=== PATIENT | female | born 1985 | race Caucasian/White ===

== ENCOUNTER 2019-06-17 10:47 | Observation (INO) ==
--- NOTE | 2019-06-17 11:54 | Emergency Department Note ---
History of Present Illness General Chief Complaint: Shortness of Breath/Dyspnea Stated Complaint: SOB,PAIN IN CHEST,NECK,BACK,HTN,CSECTION 1WEEK AGO History of Present Illness Maximum Pain Intensity: 8 HPI Narrative: This patient is a 34-year-old female, 1 week , the presents to the emergency department complaining of chest pain and shortness of breath that started particularly last night. The chest pain is stabbing in nature. Her shortness of breath is worse with exertion. She denies any cough or hemoptysis. No fever. The patient notes that she did have left leg discomfort prior to discharge from her 1 week ago. An ultrasound was performed of her legs. No DVT was noted. She has not tried anything [id number] for her symptoms. The patient saw her [employer]ER today, and was sent here for further evaluation. Home Medications Home Medications Medication Instructions Recorded Confirmed Type PNV cmb#[id number]-ferrous fumarate-FA 1 tab PO QPM 05/27/19 06/17/19 History [] fluoxetine 40 mg PO PM 06/04/19 06/17/19 History ondansetron HCl [Zofran] 4 mg PO Q8H PRN 06/04/19 06/17/19 History ibuprofen 600 mg PO Q6H PRN #60 tab 06/10/19 06/17/19 Rx oxycodone-acetaminophen [Percocet] 1 tab PO Q4H PRN #18 tab 06/10/19 06/17/19 Rx omeprazole 20 mg PO DAILY PRN 06/17/19 06/17/19 History Allergies Allergy/AdvReac Type Severity Reaction Status Date / Time No Known Allergies Allergy Verified 06/17/19 20:29 Past Med/Surg History Medical History Anxiety GERD (gastroesophageal reflux disease) Controlled with Omeprazole Gestational diabetes Currently- monitors sugars- no issues per patient Scoliosis Surgical History Hx of section c/s (2011): 2/2 failure to progress- per records, good pain control with epidural but placement took multiple attempts/hx scoliosis c/s (2015): SAB x1 attempt at L3-L4 Hx of dilation and curettage PONV (postoperative nausea and vomiting) Social History Preferred Language: Moldovan Communication Ability: Effective Manager Recovery Required: No Beliefs That Will Affect Care: None marital status: Current Living Situation: Family Feels Safe at Home: Yes Smoking Status: Never smoker Second Hand Exposure: No ; Hx Alcohol Use: No Hx Substance Use: No Review of Systems A total of 10 systems reviewed and were otherwise negative Physical Exam Vital Signs: Vital Signs - 24 hr 06/17/19 10:51 06/17/19 11:43 06/17/19 11:44 Temperature 37.1 C Temperature Source Oral Pulse Rate 54 L 52 L Pulse Rate [Apical ] Pulse Rate from Sp O2 Sensor 53 L Respiratory Rate 20 23 Respiratory Effort / Characteristics Non-Labored Sponta neous Respiratory Depth Normal Respiratory Patter n Regular Blood Pressure 160/96 H 178/88 H Blood Pressure [Ri ght Arm] Blood Pressure Raven n 117 103 Blood Pressure Raven n [Right Arm] Pulse Oximetry 99 97 98 Oxygen Delivery Me thod Room Air Room Air Room Air Sepsis Recent Feve r Within 48 Hours No Sepsis New/Unexpla ined Change in Men gina Status No Sepsis Action Take n by Nursing No Action Required 06/17/19 13:00 06/17/19 14:01 06/17/19 14:30 Temperature Temperature Source Pulse Rate 52 L 56 L 61 Pulse Rate [Apical ] Pulse Rate from Sp O2 Sensor 51 L 55 L 59 L Respiratory Rate 21 15 20 Respiratory Effort / Characteristics Respiratory Depth Respiratory Patter n Blood Pressure 179/96 H 138/110 H 183/93 H Blood Pressure [Ri ght Arm] Blood Pressure Raven n 123 116 113 Blood Pressure Raven n [Right Arm] Pulse Oximetry 97 98 97 Oxygen Delivery Me thod Room Air Sepsis Recent Feve r Within 48 Hours Sepsis New/Unexpla ined Change in Men gina Status Sepsis Action Take n by Nursing 06/17/19 15:30 06/17/19 16:00 06/17/19 16:30 Temperature Temperature Source Pulse Rate 54 L 56 L 54 L Pulse Rate [Apical ] Pulse Rate from Sp O2 Sensor 54 L 56 L 54 L Respiratory Rate 21 28 H 27 H Respiratory Effort / Characteristics Respiratory Depth Respiratory Patter n Blood Pressure 170/95 H 159/89 H 161/92 H Blood Pressure [Ri ght Arm] Blood Pressure Raven n 122 105 117 Blood Pressure Raven n [Right Arm] Pulse Oximetry 98 96 96 Oxygen Delivery Me thod Room Air Room Air Sepsis Recent Feve r Within 48 Hours Sepsis New/Unexpla ined Change in Men gina Status Sepsis Action Take n by Nursing 06/17/19 17:00 06/17/19 17:48 Temperature Temperature Source Pulse Rate 52 L Pulse Rate [Apical ] 51 L Pulse Rate from Sp O2 Sensor 52 L Respiratory Rate 26 H 18 Respiratory Effort / Characteristics Non-Labored Respiratory Depth Normal Respiratory Patter n Blood Pressure 150/82 H Blood Pressure [Ri ght Arm] 163/87 H Blood Pressure Raven n 99 Blood Pressure Raven n [Right Arm] 112 Pulse Oximetry 96 99 Oxygen Delivery Me thod Room Air Room Air Sepsis Recent Feve r Within 48 Hours Sepsis New/Unexpla ined Change in Men gina Status Sepsis Action Take n by Nursing Constitutional: WD/WN, vitals as above Eyes: EOM intact bilaterally ENMT: external ear and nose normal, oropharynx normal Neck: trachea midline Respiratory: normal respiratory effort, lungs clear to auscultation Cardiovascular: RRR, no murmur, no edema Gastrointestinal (Abdomen): normal bowel sounds, soft, nontender, no hepatosplenomegaly Musculoskeletal: no cyanosis or clubbing, extremities motor strength 5/5 Skin: no rashes, warm and dry Neurologic: Alert and oriented x3. No focal motor deficits. Psychiatric: Acting appropriately Course Course Patient was seen and examined Vital signs including blood pressure were reviewed medications list was verified with patient Labs were obtained, and a saline lock was established And EKG was performed and reviewed. The patient was ordered a classroom monitor. engine monitor was placed Imaging was performed and reviewed. Upon reevaluation, the patient was complaining of a headache. She was ordered Tylenol. We discussed her results. She voiced understanding. The case was also discussed with my supervising physician and subsequently the [employer] service. The patient will be admitted for further treatment. Consultations Consultation #1: Dr. Graham Administered Medications Ioversol (Optiray 320 125ml) 120 ml IV ONCE PRN PRN Reason: Interaction Checking Stop: 06/21/19 13:26 Last Admin: 06/17/19 13:27 Dose: 120 ml Documented by: [id number] Discontinued Medications Acetaminophen (Tylenol) 1,000 mg PO NOW STA Stop: 06/17/19 14:29 Last Admin: 06/17/19 14:41 Dose: 1,000 mg Documented by: [id number] Diphenhydramine HCl (Benadryl) 25 mg IV NOW STA Stop: 06/17/19 18:45 Last Admin: 06/17/19 19:37 Dose: 25 mg Documented by: [id number] Famotidine (Pepcid 20mg Iv Push) 20 mg IV ONE STA Stop: 06/17/19 18:45 Last Admin: 06/17/19 19:37 Dose: 20 mg Documented by: [id number] Methylprednisolone (Solumedrol) 125 mg IV NOW STA Stop: 06/17/19 18:45 Last Admin: 06/17/19 19:37 Dose: 125 mg Documented by: [id number] Medical Decision Making Medical Records Attestation: I reviewed the patient's medical records. Home Medications Current Medication List: was personally reviewed by me Laboratory Data Attestation: I reviewed the patient's lab results. Result diagrams: 06/17/19 11:55 06/17/19 11:55 Lab Results 06/17/19 06/17/19 06/17/19 Range/Units 11:55 11:55 11:55 WBC 7.44 (4.8-10.8) K/uL RBC 3.89 L (4.2-5.4) M/uL Hgb 11.4 L (12.0-16.0) g/dL Hct 35.0 L (37-47) % MCV 90.0 (80-100) fL MCH 29.3 (25-34) pg MCHC 32.6 (32-36) g/dL RDW Std Deviation 47.5 H (36.4-46.3) fL RDW Coeff of Neeta 14.4 (11.5-14.5) % Plt Count 251 (130-400) K/uL MPV 10.3 (7.4-10.4) fL Immature Gran % (Auto) 0.5 % Neut % (Auto) 63.2 % Lymph % (Auto) 29.4 % [place] % (Auto) 5.6 % Eos % (Auto) 1.2 % Baso % (Auto) 0.1 % Immature Gran # (Auto) 0.04 H (0.00-0.02) K/uL Neut # (Auto) 4.69 (1.4-6.5) K/uL Lymph # (Auto) 2.19 (1.2-3.4) K/uL [place] # (Auto) 0.42 (0.11-0.59) K/uL Eos # (Auto) 0.09 (0-0.5) K/uL Baso # (Auto) 0.01 (0-0.2) K/uL PT 10.7 (9.0-12.0) Seconds INR 1.0 (0.9-1.1) Sodium 142 (136-145) mmol/L Potassium 4.0 (3.5-5.1) mmol/L Chloride 112 H (98-107) mmol/L Carbon Dioxide 22 (21-32) mmol/L Anion Gap 8.0 (3-11) BUN 11 (7-18) mg/dl Creatinine 0.71 (0.6-1.2) mg/dl Est Cr Clr Drug Dosing 126.4 ml/min Est GFR ( Amer) 128.8 Est GFR (Non-Af Amer) 111.1 BUN/Creatinine Ratio 15.7 (10-20) Glucose 81 (70-99) mg/dl Calcium 8.8 (8.5-10.1) mg/dl Total Bilirubin 0.4 (0.2-1) mg/dl Direct Bilirubin < 0.1 (0-0.2) mg/dl AST 39 H (15-37) U/L ALT 51 (12-78) U/L Alkaline Phosphatase 109 (45-117) U/L Troponin I < 0.015 (0-0.045) ng/ml Total Protein 6.9 (6.4-8.2) gm/dl Albumin 2.9 L (3.4-5.0) gm/dl Urine Color Urine Appearance (Clear) Urine pH (4.5-7.5) Ur Specific [place] (1.000-1.030) Urine Protein (Negative) Urine Glucose (UA) (Negative) Urine Ketones (Negative) Urine Blood (Negative) Urine Nitrite (Negative) Urine Bilirubin (Negative) Urine Urobilinogen (Negative) Ur Leukocyte Esterase (Negative) Urine WBC (Auto) (0-5) /hpf Urine RBC (Auto) (0-4) /hpf U Hyaline Cast (Auto) (0-5) /lpf U Epithel Cells (Auto) (0-5) /lpf Urine Bacteria (Auto) (Negative) 06/17/19 Range/Units 12:45 WBC (4.8-10.8) K/uL RBC (4.2-5.4) M/uL Hgb (12.0-16.0) g/dL Hct (37-47) % MCV (80-100) fL MCH (25-34) pg MCHC (32-36) g/dL RDW Std Deviation (36.4-46.3) fL RDW Coeff of Neeta (11.5-14.5) % Plt Count (130-400) K/uL MPV (7.4-10.4) fL Immature Gran % (Auto) % Neut % (Auto) % Lymph % (Auto) % Hays % (Auto) % Eos % (Auto) % Baso % (Auto) % Immature Gran # (Auto) (0.00-0.02) K/uL Neut # (Auto) (1.4-6.5) K/uL Lymph # (Auto) (1.2-3.4) K/uL Hays # (Auto) (0.11-0.59) K/uL Eos # (Auto) (0-0.5) K/uL Baso # (Auto) (0-0.2) K/uL PT (9.0-12.0) Seconds INR (0.9-1.1) Sodium (136-145) mmol/L Potassium (3.5-5.1) mmol/L Chloride (98-107) mmol/L Carbon Dioxide (21-32) mmol/L Anion Gap (3-11) BUN (7-18) mg/dl Creatinine (0.6-1.2) mg/dl Est Cr Clr Drug Dosing ml/min Est GFR ( Amer) Est GFR (Non-Af Amer) BUN/Creatinine Ratio (10-20) Glucose (70-99) mg/dl Calcium (8.5-10.1) mg/dl Total Bilirubin (0.2-1) mg/dl Direct Bilirubin (0-0.2) mg/dl AST (15-37) U/L ALT (12-78) U/L Alkaline Phosphatase (45-117) U/L Troponin I (0-0.045) ng/ml Total Protein (6.4-8.2) gm/dl Albumin (3.4-5.0) gm/dl Urine Color [place] Urine Appearance Cloudy A (Clear) Urine pH 6.0 (4.5-7.5) Ur Specific Nichols 1.018 (1.000-1.030) Urine Protein 1+ H (Negative) Urine Glucose (UA) Negative (Negative) Urine Ketones Trace H (Negative) Urine Blood 3+ H (Negative) Urine Nitrite Negative (Negative) Urine Bilirubin Negative (Negative) Urine Urobilinogen Negative (Negative) Ur Leukocyte Esterase 2+ H (Negative) Urine WBC (Auto) >30 H (0-5) /hpf Urine RBC (Auto) >30 H (0-4) /hpf U Hyaline Cast (Auto) 5-10 H (0-5) /lpf U Epithel Cells (Auto) >30 H (0-5) /lpf Urine Bacteria (Auto) Negative (Negative) Imaging Data Attestation: I personally reviewed and interpreted this imaging study as follows: Radiologist's Impression: CT chest for PE 1. No evidence of pulmonary thromboembolic disease. 2. Mild pulmonary edema with small pleural effusions. 3. Bibasilar groundglass densities suggest atelectasis. 4. Bronchial wall thickening is likely secondary to congestive change with bronchitis or reactive airway disease also differential considerations. ACT 112: Negative or not required by law. The above report was generated using voice recognition software. It may contain grammatical, syntax or spelling errors. Electronically signed by: Vinny Walton M.D. 06/17/2019 1:54 PM Dictated: [id number] Transcribed: 06/17/19 133 ECG Data Attestation: I personally reviewed and interpreted this ECG as follows: Prior ECG tracings: not available for review Interpretation: Sinus bradycardia with a rate of 54 bpm. Normal axis noted. No ectopy. No acute ischemic changes noted. MDM Narrative Differential diagnosis: Bronchitis, pneumonia, pulmonary embolus, atelectasis, cardiac arrhythmia, anemia, cardiac ischemia, preeclampsia, eclampsia among others This patient is a 34-year-old female who presents to the emergency department with complaints of chest pain and shortness of breath. Her past chart was reviewed. She was complaining of leg pain prior to being discharged after her 1 week ago. An ultrasound at that time was performed and did not show any signs of DVT. An order was placed for continuous cardiac monitoring. The monitor shows a rate of 54 with sinus bradycardic rhythm. On exam, she was not hypoxic. She was not tachycardic. Her blood pressure was however elevated. Given her state, there was concern for pulmonary embolus, which is likely the reason that she was sent over from her [employer] doctor's office today. An EKG was performed and unremarkable. Labs are also unremarkable. Troponin is negative. Due to risk factors as noted above, a CT scan was performed. This is consistent with pulmonary edema/congestion. No signs of pulmonary embolus. Due to her blood pressure, the case was discussed with SPICE ROOM WORKER. They recommended that the patient be admitted to the hospital for management of preeclampsia. Impression & Plan Pre-eclampsia, Chest pain, Acute dyspnea Discharge Plan Visit Data *Final* Discharge Date/Time: 06/17/19 19:34 Chief Complaint: Shortness of Breath/Dyspnea Stated Complaint: SOB,PAIN IN CHEST,NECK,BACK,HTN,CSECTION 1WEEK AGO ED Provider: Kedar Pedroza ED Midlevel Provider: Telma Ohara Discharge Problem: Pre-eclampsia, Chest pain, Acute dyspnea Patient Disposition: Admitted As Inpatient Condition: Fair Discharge Instructions Interventions: ED Discharge Assessment Last Done: 06/17/19 19:34
[2019-06-17 12:16] LABS: Basophils # (auto) 0.01 K/uL (0-0.2); Basophils % (auto) 0.1 %; Eosinophils # (auto) 0.09 K/uL (0-0.5); Eosinophils % (auto) 1.2 %; Hemoglobin 11.4 g/dL (12.0-16.0); Immature Granulocytes # (auto) 0.04 K/uL (0.00-0.02); Immature Granulocytes % (auto) 0.5 %; Lymphocytes # (auto) 2.19 K/uL (1.2-3.4); Lymphocytes % (auto) 29.4 %; Mean Corpuscular Hemoglobin 29.3 pg (25-34); Mean Corpuscular Hgb Conc 32.6 g/dL (32-36); Mean Platelet Volume 10.3 fL (7.4-10.4); Monocytes # (auto) 0.42 K/uL (0.11-0.59); Monocytes % (auto) 5.6 %; Neutrophils # (auto) 4.69 K/uL (1.4-6.5); Neutrophils % (auto) 63.2 %; Platelet Count 251 K/uL (130-400); RDW Coefficient of Variation 14.4 % (11.5-14.5); RDW Standard Deviation 47.5 fL (36.4-46.3); Red Blood Count 3.89 M/uL (4.2-5.4); White Blood Count 7.44 K/uL (4.8-10.8)
[2019-06-17 12:26] LABS: Prothrombin Time 10.7 Seconds (9.0-12.0)
[2019-06-17 12:35] LABS: Carbon Dioxide 22 mmol/L (21-32); Chloride 112 mmol/L (98-107); Sodium 142 mmol/L (136-145)
[2019-06-17 12:36] LABS: Alanine Aminotransferase 51 U/L (12-78); Albumin Level 2.9 gm/dl (3.4-5.0); BUN Creatinine Ratio 15.7 (10-20); Blood Urea Nitrogen 11 mg/dl (7-18); Calcium 8.8 mg/dl (8.5-10.1); Creatinine Clr Calc Pharmacy 126.4 ml/min; Est GFR (African American) 128.8; Est GFR (Non-African American) 111.1; Glucose 81 mg/dl (70-99)
[2019-06-17 12:40] LABS: Alkaline Phosphatase 109 U/L (45-117); Aspartate Aminotransferase 39 U/L (15-37); Bilirubin Direct < 0.1 mg/dl (0-0.2); Bilirubin,Total 0.4 mg/dl (0.2-1); Total Protein 6.9 gm/dl (6.4-8.2); Troponin I < 0.015 ng/ml (0-0.045)
[2019-06-17 13:22] LABS: Appearance Urine Cloudy (Clear); Bacteria Urine Automated Negative (Negative); Bilirubin Urine Negative (Negative); Blood Urine 3+ (Negative); Color Urine Orange; Epithelial Cell Urine Auto >30 /lpf (0-5); Glucose Urine UA Negative (Negative); Ketones Urine Trace (Negative); Leukocyte Esterase Urine 2+ (Negative); Nitrite Urine Negative (Negative); Protein Urine 1+ (Negative); RBC Urine Automated >30 /hpf (0-4); Specific Gravity Urine 1.018 (1.000-1.030); Urobilinogen Urine Negative (Negative); WBC Urine Automated >30 /hpf (0-5)
[2019-06-17] MEDS ORDERED: OPTIRAY 320 125ml IV PRN (13:27)
--- NOTE | 2019-06-17 13:55 | CT Scan Report ---
CT angio chest PE protocol CT DOSE: 520.46 mGy.cm HISTORY: 34 years-old Female with SOB. Acute shortness of breath TECHNIQUE: Multiple CTA images of the chest were obtained after the intravenous administration of 120 ml Optiray 320. Coronal and sagittal MIPS were obtained from the axial data set and were submitted for review. All measurements were obtained according to NASCET criteria. A dose lowering technique w as utilized adhering to the principles of ALARA. COMPARISON: Duplex venous Doppler study of same day FINDINGS: CTA: The heart is upper limits of normal in size. No pericardial effusion. Suboptimal evaluation of the le ft heart structures and the left ventricular outflow tract secondary to contrast bolus timing. Aberra nt retroesophageal course of the right subclavian artery. Proximal great vessels appear patent. No th oracic aortic aneurysm or dissection identified. Pulmonary artery is opacified to the level of the caasrez bsegmental branches and demonstrates no filling defects to suggest pulmonary thromboembolic disease. CT CHEST: Unremarkable thyroid. No pathologically enlarged lymph nodes. Small bilateral pleural effusions. No p neumothorax. Moderate bronchial wall thickening. Intralobular septal thickening it is most pronounced at the level of the lung bases. Bibasilar predominant groundglass densities. There are no suspicious pulmonary nodules or masses identified. The central airways appear patent. No acute process of the imaged upper abdomen. There is suggestion of mild hepatic steatosis. Soft tis sues and breast parenchyma appear unremarkable. Bones appear intact. IMPRESSION: 1. No evidence of pulmonary thromboembolic disease. 2. Mild pulmonary edema with small pleural effusions. 3. Bibasilar groundglass densities suggest atelectasis. 4. Bronchial wall thickening is likely secondary to congestive change with bronchitis or reactive air way disease also differential considerations. ACT 112: Negative or not required by law. The above report was generated using voice recognition software. It may contain grammatical, syntax o r spelling errors. Electronically signed by: Vinny Walton M.D. 06/17/2019 1:54 PM
[2019-06-17] MEDS ORDERED: ACETAMINOPHEN 500 MG TAB PO STA (14:28)
--- NOTE | 2019-06-17 15:07 | Electrocardiogram Report ---
Test Reason : Blood Pressure : / mmHG Vent. Rate : 054 BPM Atrial Rate : 054 BPM P-R Int : 140 ms QRS Dur : 074 ms QT Int : 440 ms P-R-T Axes : -01 010 025 degrees QTc Int : 417 ms Sinus bradycardia Otherwise normal ECG No previous ECGs available Confirmed by Gordo Curry ([id number]) on 06/17/2019 3:07:30 PM Referred By: Confirmed By:Kareem Curry
[2019-06-17] MEDS ORDERED: methylPREDNISolone 125 MG/2 ML VIAL IV STA (18:44)
[2019-06-17] MEDS ORDERED: FAMOTIDINE 20MG/5ML IV PUSH IV STA (18:44)
[2019-06-17] MEDS ORDERED: DiphenhydrAMINE HCL 50 MG/ML VIAL IV STA (18:44)
[2019-06-17] MEDS ORDERED: FLUOXETINE HCL 20 MG CAP PO ONE (20:39)
[2019-06-17] MEDS: LABETALOL HCL 200 MG TAB PO SCH (21:14)
--- NOTE | 2019-06-17 23:59 | History and Physical Report ---
DATE OF ADMISSION: 06/17/2019 CHIEF COMPLAINT: Chest pain, headache, shortness of breath. HISTORY OF PRESENT ILLNESS: The patient is a 34-year-old 4, para 3. She had 1 spontaneous first trimester AB, 3 C-sections. Her last was on 06/10/2019, was a repeat . She was in the hospital for 4 days. She had an uneventful postoperative course. Her obstetrical history is as follows: In 2011, she had a female, 7 pounds 6 ounces at 41 weeks, 48-hour labor, pushed for 4 hours, had a mid pelvic arrest secondary to cephalopelvic disproportion . Second 2015, a girl, 8 pounds 1 ounce, repeat at 39 weeks, 2020, 8 pounds 12 ounce boy at 39 weeks, repeat . The patient did not have any blood pressure problems prior to admission, she had been on Prozac, had stopped it for the majority of her , but had restarted it a week or 2 prior to delivery secondary to anxiety. She was on 40 mg a day. She was seen in the ER for evaluation of shortness of breath and chest pain and headaches. PE exam for pulmonary embolus was negative and also lab work for toxemia was negative. Her only significant finding was an elevated blood pressure. She had pressures as high as 185/95. PAST MEDICAL HISTORY: Three children in good health. ALLERGIES: No known drug allergies. PAST SURGICAL HISTORY: Three C-sections, a D&C. MEDICAL HISTORY: She has been on Prozac for anxiety for a long time, stopped most of the but was restarted several weeks prior to the delivery. She has not had a dose today. SOCIAL HISTORY: No smoking. No excessive alcohol intake. 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 FAMILY HISTORY: Mom 60 in good health. Father 62 in good health. Two sisters, 1 brother in good health. REVIEW OF SYSTEMS: HEAD: No symptoms of frequent or severe headaches. EYES: No symptoms of blurred vision, double vision. EARS: No symptoms of frequent ear infection, difficulty hearing. NOSE: No symptoms of frequent nosebleeds, difficulty breathing through her nose. THROAT: No symptoms of frequent or severe sore throats, difficulty swallowing. RESPIRATORY SYSTEM: No history of asthma, chest pain, shortness of breath. PHYSICAL EXAMINATION: GENERAL: Well-developed, well-nourished 34-year-old white female, alert, oriented x3 and cooperative in no acute distress, appears stated age. EYES: Conjunctivae are pink. Sclerae white, no evidence of jaundice. EARS: Had normal light reflex bilaterally. NOSE: Had normal mucosa. Septum is midline. There were no polyps. THROAT: No erythema or evidence of infection. Teeth are in good state of repair. HEAD: Normocephalic, normal distribution of hair. NECK: Supple. Trachea midline. Thyroid is not enlarged. There is no adenopathy appreciated. Both carotids are of good intensity. CHEST: Clear to auscultation and percussion. No wheezes, rales or rhonchi appreciated. ABDOMEN: Soft and nontender. There was a well-healed Pfannenstiel scar. There was no CVA tenderness. MUSCULOSKELETAL: No calf tenderness. IMPRESSIONS OF THIS CASE: Long history of anxiety, elevated blood pressure, headaches. MTDD
[2019-06-18] MEDS ORDERED: ACETAMINOPHEN 500 MG TAB PO PRN (00:42)
[2019-06-18] MEDS ORDERED: cephALEXin 500 MG CAP PO SCH (08:00)
[2019-06-18] MEDS: LABETALOL HCL 200 MG TAB PO SCH (08:50)
[2019-06-18 08:51] LABS: Eosinophils # (auto) 0.01 K/uL (0-0.5); Eosinophils % (auto) 0.2 %; Hematocrit (blood only) 38.4 % (37-47); Hemoglobin 12.7 g/dL (12.0-16.0); Immature Granulocytes # (auto) 0.07 K/uL (0.00-0.02); Immature Granulocytes % (auto) 1.3 %; Lymphocytes # (auto) 0.91 K/uL (1.2-3.4); Lymphocytes % (auto) 17.2 %; Mean Corpuscular Hemoglobin 29.6 pg (25-34); Mean Corpuscular Hgb Conc 33.1 g/dL (32-36); Mean Corpuscular Volume 89.5 fL (80-100); Mean Platelet Volume 10.2 fL (7.4-10.4); Monocytes # (auto) 0.07 K/uL (0.11-0.59); Monocytes % (auto) 1.3 %; Neutrophils # (auto) 4.24 K/uL (1.4-6.5); Platelet Count 296 K/uL (130-400); RDW Coefficient of Variation 14.3 % (11.5-14.5); RDW Standard Deviation 46.6 fL (36.4-46.3); Red Blood Count 4.29 M/uL (4.2-5.4)
[2019-06-18 09:03] LABS: Albumin Level 3.1 gm/dl (3.4-5.0); BUN Creatinine Ratio 11.3 (10-20); Calcium 9.2 mg/dl (8.5-10.1); Est GFR (African American) 131.6; Est GFR (Non-African American) 113.6; Potassium 3.9 mmol/L (3.5-5.1)
[2019-06-18 09:05] LABS: Albumin Globulin Ratio 0.7 (0.9-2); Bilirubin,Total 0.4 mg/dl (0.2-1); Globulin 4.4 gm/dl (2.5-4.0); Total Protein 7.5 gm/dl (6.4-8.2)
[2019-06-18] MEDS ORDERED: ACETAMINOPHEN 325 MG TAB PO PRN (09:31)
--- NOTE | 2019-06-18 09:31 | Obstetrical Progress Note ---
Date of Service June 18, 2019 Assessment & Plan Admission and Anticipated Discharge Date Admission Date: June 17, 2019 Subjective Patient is seen and examined Reviewed her chart She presented to ER with CP/ SOB and LAM yesterday CT of chest was negative for PE Admitted for HT with LAM's and started on Labetalol 200 mg bid She feels better LAM is better but still there in her neck to top of her head 07/30, was 7 yesterday No change in vision/ N&V/ epigastric/ RUQ pain/ numbness/ ting;ing/ CP/SOB Bleeding is minimal No fever/ chills Eating normal diet Vital Signs Temp Pulse Resp BP Pulse Ox 06/18/19 09:31 72 96 06/18/19 09:29 66 133/66 06/18/19 09:26 79 94 06/18/19 09:18 68 94 06/18/19 09:13 68 95 06/18/19 09:08 72 95 06/18/19 09:03 66 95 06/18/19 08:58 67 95 06/18/19 08:56 64 148/71 H 06/18/19 08:55 71 162/77 H 06/18/19 08:53 75 96 06/18/19 08:48 70 95 06/18/19 08:43 66 95 06/18/19 08:38 67 96 06/18/19 08:33 68 95 06/18/19 08:28 77 96 06/18/19 08:23 78 96 06/18/19 08:20 75 90 06/18/19 08:18 70 92 06/18/19 08:13 75 91 06/18/19 08:08 71 92 06/18/19 08:03 73 91 06/18/19 07:58 73 91 06/18/19 07:55 72 157/75 H 06/18/19 07:53 70 92 06/18/19 07:48 74 94 06/18/19 07:46 83 89 L 06/18/19 07:43 73 94 06/18/19 07:38 70 93 06/18/19 07:33 68 93 06/18/19 07:28 68 94 06/18/19 07:23 68 93 06/18/19 07:18 68 93 06/18/19 07:13 67 94 06/18/19 07:08 66 93 06/18/19 07:05 37.1 C 77 16 137/76 06/18/19 07:03 71 93 06/18/19 06:58 67 94 06/18/19 06:55 67 155/75 H 06/18/19 06:53 70 94 06/18/19 06:48 66 93 06/18/19 06:43 68 94 06/18/19 06:38 69 95 06/18/19 06:33 66 94 06/18/19 06:28 65 95 06/18/19 06:23 61 95 06/18/19 06:18 62 97 06/18/19 06:13 62 96 06/18/19 06:08 64 96 06/18/19 06:03 64 97 06/18/19 05:58 71 95 06/18/19 05:55 66 136/76 06/18/19 05:51 64 97 06/18/19 05:46 65 96 06/18/19 05:41 67 95 06/18/19 05:36 63 96 06/18/19 05:31 61 95 06/18/19 05:26 71 96 06/18/19 05:21 65 94 06/18/19 05:16 64 96 06/18/19 05:11 63 94 06/18/19 05:06 65 96 06/18/19 05:01 64 95 06/18/19 04:56 64 97 06/18/19 04:55 61 147/72 H 06/18/19 04:51 64 96 06/18/19 04:46 60 96 06/18/19 04:43 36.9 C 18 06/18/19 04:41 65 98 06/18/19 04:36 74 97 06/18/19 04:29 63 96 06/18/19 04:24 69 96 06/18/19 04:19 64 96 06/18/19 04:14 65 96 06/18/19 04:09 64 96 06/18/19 04:04 63 96 06/18/19 03:59 62 97 06/18/19 03:55 65 161/81 H 06/18/19 03:54 67 96 06/18/19 03:49 63 95 06/18/19 03:44 63 94 06/18/19 03:39 63 94 06/18/19 03:34 65 94 0227/20 03:29 61 94 06/18/19 03:24 65 94 06/18/19 03:19 65 94 06/18/19 03:14 64 94 06/18/19 03:09 63 95 06/18/19 03:04 62 97 06/18/19 02:59 64 96 06/18/19 02:55 60 188/85 H 06/18/19 02:54 62 97 06/18/19 02:49 65 94 06/18/19 02:44 64 96 06/18/19 02:39 62 96 06/18/19 02:34 62 97 06/18/19 02:29 63 97 06/18/19 02:20 63 94 06/18/19 02:15 66 96 06/18/19 02:10 63 94 06/18/19 02:05 65 94 06/18/19 02:00 64 94 06/18/19 01:55 61 148/70 H 95 06/18/19 01:50 65 94 06/18/19 01:45 65 95 06/18/19 01:40 63 94 06/18/19 01:35 64 94 06/18/19 01:30 63 94 06/18/19 01:25 64 94 06/18/19 01:20 63 94 06/18/19 01:15 64 94 06/18/19 01:10 63 94 06/18/19 01:05 62 94 06/18/19 01:00 62 93 06/18/19 00:55 66 154/69 H 96 06/18/19 00:50 63 95 06/18/19 00:45 62 95 06/18/19 00:40 60 95 06/18/19 00:35 72 96 06/18/19 00:34 36.6 C 18 06/18/19 00:30 70 97 06/18/19 00:25 60 96 06/18/19 00:20 70 95 06/18/19 00:13 67 94 06/18/19 00:08 61 92 06/18/19 00:03 60 93 06/17/19 23:58 60 93 06/17/19 23:55 62 163/78 H 06/17/19 23:53 64 91 06/17/19 23:48 60 94 06/17/19 23:43 61 94 06/17/19 23:38 62 93 06/17/19 23:33 61 94 06/17/19 23:28 62 94 06/17/19 23:23 62 94 06/17/19 23:18 62 94 06/17/19 23:13 61 94 06/17/19 23:08 62 93 06/17/19 23:03 61 93 06/17/19 22:58 61 94 06/17/19 22:53 61 93 06/17/19 22:48 60 94 06/17/19 22:47 59 L 158/79 H 06/17/19 22:43 62 94 06/17/19 22:38 62 94 06/17/19 22:33 62 152/75 H 94 06/17/19 22:30 61 94 06/17/19 22:28 61 94 06/17/19 22:25 61 94 06/17/19 22:23 57 L 95 06/17/19 22:19 69 94 06/17/19 22:18 65 144/84 H 96 06/17/19 22:14 61 94 06/17/19 22:13 66 94 06/17/19 22:08 61 93 06/17/19 22:07 60 94 06/17/19 22:03 61 136/68 94 06/17/19 22:00 61 93 06/17/19 21:58 58 L 94 06/17/19 21:54 64 94 06/17/19 21:53 61 94 06/17/19 21:48 56 L 159/67 H 95 06/17/19 21:43 53 L 97 06/17/19 21:38 58 L 96 Lab Results 06/17/19 06/17/19 06/17/19 Range/Units 11:55 11:55 11:55 WBC 7.44 (4.8-10.8) K/uL RBC 3.89 L (4.2-5.4) M/uL Hgb 11.4 L (12.0-16.0) g/dL Hct 35.0 L (37-47) % MCV 90.0 (80-100) fL MCH 29.3 (25-34) pg MCHC 32.6 (32-36) g/dL RDW Std Deviation 47.5 H (36.4-46.3) fL RDW Coeff of Neeta 14.4 (11.5-14.5) % Plt Count 251 (130-400) K/uL MPV 10.3 (7.4-10.4) fL Immature Gran % (Auto) 0.5 % Neut % (Auto) 63.2 % Lymph % (Auto) 29.4 % Mills % (Auto) 5.6 % Eos % (Auto) 1.2 % Baso % (Auto) 0.1 % Immature Gran # (Auto) 0.04 H (0.00-0.02) K/uL Neut # (Auto) 4.69 (1.4-6.5) K/uL Lymph # (Auto) 2.19 (1.2-3.4) K/uL Mills # (Auto) 0.42 (0.11-0.59) K/uL Eos # (Auto) 0.09 (0-0.5) K/uL Baso # (Auto) 0.01 (0-0.2) K/uL PT 10.7 (9.0-12.0) Seconds INR 1.0 (0.9-1.1) Sodium 142 (136-145) mmol/L Potassium 4.0 (3.5-5.1) mmol/L Chloride 112 H (98-107) mmol/L Carbon Dioxide 22 (21-32) mmol/L Anion Gap 8.0 (3-11) BUN 11 (7-18) mg/dl Creatinine 0.71 (0.6-1.2) mg/dl Est Cr Clr Drug Dosing 126.4 ml/min Est GFR ( Amer) 128.8 Est GFR (Non-Af Amer) 111.1 BUN/Creatinine Ratio 15.7 (10-20) Glucose 81 (70-99) mg/dl Calcium 8.8 (8.5-10.1) mg/dl Total Bilirubin 0.4 (0.2-1) mg/dl Direct Bilirubin < 0.1 (0-0.2) mg/dl AST 39 H (15-37) U/L ALT 51 (12-78) U/L Alkaline Phosphatase 109 (45-117) U/L Lactate Dehydrogenase (84-246) U/L Troponin I < 0.015 (0-0.045) ng/ml Total Protein 6.9 (6.4-8.2) gm/dl Albumin 2.9 L (3.4-5.0) gm/dl Globulin (2.5-4.0) gm/dl Albumin/Globulin Ratio (0.9-2) Urine Color Urine Appearance (Clear) Urine pH (4.5-7.5) Ur Specific Hawley (1.000-1.030) Urine Protein (Negative) Urine Glucose (UA) (Negative) Urine Ketones (Negative) Urine Blood (Negative) Urine Nitrite (Negative) Urine Bilirubin (Negative) Urine Urobilinogen (Negative) Ur Leukocyte Esterase (Negative) Urine WBC (Auto) (0-5) /hpf Urine RBC (Auto) (0-4) /hpf U Hyaline Cast (Auto) (0-5) /lpf U Epithel Cells (Auto) (0-5) /lpf Urine Bacteria (Auto) (Negative) 06/17/19 06/18/19 06/18/19 Range/Units 12:45 08:21 08:21 WBC 5.30 (4.8-10.8) K/uL RBC 4.29 (4.2-5.4) M/uL Hgb 12.7 (12.0-16.0) g/dL Hct 38.4 (37-47) % MCV 89.5 (80-100) fL MCH 29.6 (25-34) pg MCHC 33.1 (32-36) g/dL RDW Std Deviation 46.6 H (36.4-46.3) fL RDW Coeff of Neeta 14.3 (11.5-14.5) % Plt Count 296 (130-400) K/uL MPV 10.2 (7.4-10.4) fL Immature Gran % (Auto) 1.3 % Neut % (Auto) 80.0 % Lymph % (Auto) 17.2 % Mills % (Auto) 1.3 % Eos % (Auto) 0.2 % Baso % (Auto) 0.0 % Immature Gran # (Auto) 0.07 H (0.00-0.02) K/uL Neut # (Auto) 4.24 (1.4-6.5) K/uL Lymph # (Auto) 0.91 L (1.2-3.4) K/uL Mills # (Auto) 0.07 L (0.11-0.59) K/uL Eos # (Auto) 0.01 (0-0.5) K/uL Baso # (Auto) 0.00 (0-0.2) K/uL PT (9.0-12.0) Seconds INR (0.9-1.1) Sodium 138 (136-145) mmol/L Potassium 3.9 (3.5-5.1) mmol/L Chloride 108 H (98-107) mmol/L Carbon Dioxide 23 (21-32) mmol/L Anion Gap 8.0 (3-11) BUN 8 (7-18) mg/dl Creatinine 0.69 (0.6-1.2) mg/dl Est Cr Clr Drug Dosing 130.0 ml/min Est GFR ( Amer) 131.6 Est GFR (Non-Af Amer) 113.6 BUN/Creatinine Ratio 11.3 (10-20) Glucose 133 H (70-99) mg/dl Calcium 9.2 (8.5-10.1) mg/dl Total Bilirubin 0.4 (0.2-1) mg/dl Direct Bilirubin (0-0.2) mg/dl AST 28 (15-37) U/L ALT 51 (12-78) U/L Alkaline Phosphatase 109 (45-117) U/L Lactate Dehydrogenase (84-246) U/L Troponin I (0-0.045) ng/ml Total Protein 7.5 (6.4-8.2) gm/dl Albumin 3.1 L (3.4-5.0) gm/dl Globulin 4.4 H (2.5-4.0) gm/dl Albumin/Globulin Ratio 0.7 L (0.9-2) Urine Color E[place] Urine Appearance Cloudy A (Clear) Urine pH 6.0 (4.5-7.5) Ur Specific Hawley 1.018 (1.000-1.030) Urine Protein 1+ H (Negative) Urine Glucose (UA) Negative (Negative) Urine Ketones Trace H (Negative) Urine Blood 3+ H (Negative) Urine Nitrite Negative (Negative) Urine Bilirubin Negative (Negative) Urine Urobilinogen Negative (Negative) Ur Leukocyte Esterase 2+ H (Negative) Urine WBC (Auto) >30 H (0-5) /hpf Urine RBC (Auto) >30 H (0-4) /hpf U Hyaline Cast (Auto) 5-10 H (0-5) /lpf U Epithel Cells (Auto) >30 H (0-5) /lpf Urine Bacteria (Auto) Negative (Negative) 06/18/19 Range/Units 08:21 WBC (4.8-10.8) K/uL RBC (4.2-5.4) M/uL Hgb (12.0-16.0) g/dL Hct (37-47) % MCV (80-100) fL MCH (25-34) pg MCHC (32-36) g/dL RDW Std Deviation (36.4-46.3) fL RDW Coeff of Neeta (11.5-14.5) % Plt Count (130-400) K/uL MPV (7.4-10.4) fL Immature Gran % (Auto) % Neut % (Auto) % Lymph % (Auto) % Mills % (Auto) % Eos % (Auto) % Baso % (Auto) % Immature Gran # (Auto) (0.00-0.02) K/uL Neut # (Auto) (1.4-6.5) K/uL Lymph # (Auto) (1.2-3.4) K/uL Mills # (Auto) (0.11-0.59) K/uL Eos # (Auto) (0-0.5) K/uL Baso # (Auto) (0-0.2) K/uL PT (9.0-12.0) Seconds INR (0.9-1.1) Sodium (136-145) mmol/L Potassium (3.5-5.1) mmol/L Chloride (98-107) mmol/L Carbon Dioxide (21-32) mmol/L Anion Gap (3-11) BUN (7-18) mg/dl Creatinine (0.6-1.2) mg/dl Est Cr Clr Drug Dosing ml/min Est GFR ( Amer) Est GFR (Non-Af Amer) BUN/Creatinine Ratio (10-20) Glucose (70-99) mg/dl Calcium (8.5-10.1) mg/dl Total Bilirubin (0.2-1) mg/dl Direct Bilirubin (0-0.2) mg/dl AST (15-37) U/L ALT (12-78) U/L Alkaline Phosphatase (45-117) U/L Lactate Dehydrogenase 386 H (84-246) U/L Troponin I (0-0.045) ng/ml Total Protein (6.4-8.2) gm/dl Albumin (3.4-5.0) gm/dl Globulin (2.5-4.0) gm/dl Albumin/Globulin Ratio (0.9-2) Urine Color Urine Appearance (Clear) Urine pH (4.5-7.5) Ur Specific Hawley (1.000-1.030) Urine Protein (Negative) Urine Glucose (UA) (Negative) Urine Ketones (Negative) Urine Blood (Negative) Urine Nitrite (Negative) Urine Bilirubin (Negative) Urine Urobilinogen (Negative) Ur Leukocyte Esterase (Negative) Urine WBC (Auto) (0-5) /hpf Urine RBC (Auto) (0-4) /hpf U Hyaline Cast (Auto) (0-5) /lpf U Epithel Cells (Auto) (0-5) /lpf Urine Bacteria (Auto) (Negative) PE: Alert, orientedx3, NAD, Ambulating in room Abd: soft, NT, no epig nor RUQ tenderness, incision healing well No VB Ext; trace edema, NT, Homans sign negative BL, DTR 3+/3+, no clonus AP: 34 yo s/p Repeat Csection, admitted for symptomatic HT in severe range, responded to PO Labetalol Clinically improving, still has mild LAM, BP is much better this morning Repeat labs normal creatinine, platelets, LFT's Plan to monitor longer and then reevaluate in the afternoon for possible d/c All questions were aswered Results & Data ([facility]) Vital Signs (Past 12 Hours) Vital Signs Temp Pulse Resp BP Pulse Ox 06/18/19 09:29 66 133/66 06/18/19 09:26 79 94 06/18/19 09:18 68 94 06/18/19 09:13 68 95 06/18/19 09:08 72 95 06/18/19 09:03 66 95 06/18/19 08:58 67 95 06/18/19 08:56 64 148/71 H 06/18/19 08:55 71 162/77 H 06/18/19 08:53 75 96 06/18/19 08:48 70 95 06/18/19 08:43 66 95 06/18/19 08:38 67 96 06/18/19 08:33 68 95 06/18/19 08:28 77 96 06/18/19 08:23 78 96 06/18/19 08:20 75 90 06/18/19 08:18 70 92 06/18/19 08:13 75 91 06/18/19 08:08 71 92 06/18/19 08:03 73 91 06/18/19 07:58 73 91 06/18/19 07:55 72 157/75 H 06/18/19 07:53 70 92 06/18/19 07:48 74 94 06/18/19 07:46 83 89 L 06/18/19 07:43 73 94 06/18/19 07:38 70 93 06/18/19 07:33 68 93 06/18/19 07:28 68 94 06/18/19 07:23 68 93 06/18/19 07:18 68 93 06/18/19 07:13 67 94 06/18/19 07:08 66 93 06/18/19 07:05 37.1 C 77 16 137/76 06/18/19 07:03 71 93 06/18/19 06:58 67 94 06/18/19 06:55 67 155/75 H 06/18/19 06:53 70 94 06/18/19 06:48 66 93 06/18/19 06:43 68 94 06/18/19 06:38 69 95 06/18/19 06:33 66 94 06/18/19 06:28 65 95 06/18/19 06:23 61 95 06/18/19 06:18 62 97 06/18/19 06:13 62 96 06/18/19 06:08 64 96 06/18/19 06:03 64 97 06/18/19 05:58 71 95 06/18/19 05:55 66 136/76 06/18/19 05:51 64 97 06/18/19 05:46 65 96 06/18/19 05:41 67 95 06/18/19 05:36 63 96 06/18/19 05:31 61 95 06/18/19 05:26 71 96 06/18/19 05:21 65 94 06/18/19 05:16 64 96 06/18/19 05:11 63 94 02/27/20 05:06 65 96 06/18/19 05:01 64 95 06/18/19 04:56 64 97 06/18/19 04:55 61 147/72 H 06/18/19 04:51 64 96 06/18/19 04:46 60 96 06/18/19 04:43 36.9 C 18 06/18/19 04:41 65 98 06/18/19 04:36 74 97 06/18/19 04:29 63 96 06/18/19 04:24 69 96 06/18/19 04:19 64 96 06/18/19 04:14 65 96 06/18/19 04:09 64 96 06/18/19 04:04 63 96 06/18/19 03:59 62 97 06/18/19 03:55 65 161/81 H 06/18/19 03:54 67 96 06/18/19 03:49 63 95 06/18/19 03:44 63 94 06/18/19 03:39 63 94 06/18/19 03:34 65 94 06/18/19 03:29 61 94 06/18/19 03:24 65 94 06/18/19 03:19 65 94 06/18/19 03:14 64 94 06/18/19 03:09 63 95 06/18/19 03:04 62 97 06/18/19 02:59 64 96 06/18/19 02:55 60 188/85 H 06/18/19 02:54 62 97 06/18/19 02:49 65 94 06/18/19 02:44 64 96 06/18/19 02:39 62 96 06/18/19 02:34 62 97 06/18/19 02:29 63 97 06/18/19 02:20 63 94 06/18/19 02:15 66 96 06/18/19 02:10 63 94 06/18/19 02:05 65 94 06/18/19 02:00 64 94 06/18/19 01:55 61 148/70 H 95 06/18/19 01:50 65 94 06/18/19 01:45 65 95 06/18/19 01:40 63 94 06/18/19 01:35 64 94 06/18/19 01:30 63 94 06/18/19 01:25 64 94 06/18/19 01:20 63 94 06/18/19 01:15 64 94 06/18/19 01:10 63 94 06/18/19 01:05 62 94 06/18/19 01:00 62 93 06/18/19 00:55 66 154/69 H 96 06/18/19 00:50 63 95 06/18/19 00:45 62 95 06/18/19 00:40 60 95 06/18/19 00:35 72 96 06/18/19 00:34 36.6 C 18 06/18/19 00:30 70 97 06/18/19 00:25 60 96 06/18/19 00:20 70 95 06/18/19 00:13 67 94 06/18/19 00:08 61 92 06/18/19 00:03 60 93 06/17/19 23:58 60 93 06/17/19 23:55 62 163/78 H 06/17/19 23:53 64 91 06/17/19 23:48 60 94 06/17/19 23:43 61 94 06/17/19 23:38 62 93 06/17/19 23:33 61 94 06/17/19 23:28 62 94 06/17/19 23:23 62 94 06/17/19 23:18 62 94 06/17/19 23:13 61 94 06/17/19 23:08 62 93 06/17/19 23:03 61 93 06/17/19 22:58 61 94 06/17/19 22:53 61 93 06/17/19 22:48 60 94 06/17/19 22:47 59 L 158/79 H 06/17/19 22:43 62 94 06/17/19 22:38 62 94 06/17/19 22:33 62 152/75 H 94 06/17/19 22:30 61 94 06/17/19 22:28 61 94 06/17/19 22:25 61 94 06/17/19 22:23 57 L 95 06/17/19 22:19 69 94 06/17/19 22:18 65 144/84 H 96 06/17/19 22:14 61 94 06/17/19 22:13 66 94 06/17/19 22:08 61 93 06/17/19 22:07 60 94 06/17/19 22:03 61 136/68 94 06/17/19 22:00 61 93 06/17/19 21:58 58 L 94 06/17/19 21:54 64 94 06/17/19 21:53 61 94 06/17/19 21:48 56 L 159/67 H 95 06/17/19 21:43 53 L 97 06/17/19 21:38 58 L 96 06/17/19 21:33 58 L 162/79 H 98
--- NOTE | 2019-06-18 13:20 | Obstetrical Progress Note ---
Date of Service June 18, 2019 Assessment & Plan Admission and Anticipated Discharge Date Admission Date: June 17, 2019 Subjective Patient is reevaluated Feels much better, no more LAM, CP/SOB No N&V She likes to be discharged home Vital Signs Temp Pulse Pulse Resp BP BP Pulse Ox 06/18/19 13:15 76 95 06/18/19 13:10 74 94 06/18/19 13:07 36.9 C 86 16 128/64 96 06/18/19 13:05 84 94 06/18/19 13:00 81 128/64 96 06/18/19 12:55 77 95 06/18/19 12:50 83 96 06/18/19 12:45 79 114/59 L 96 06/18/19 12:35 79 96 06/18/19 12:31 36.9 C 69 16 148/96 H 95 06/18/19 12:30 86 129/71 96 06/18/19 12:25 77 95 06/18/19 12:20 79 96 06/18/19 12:15 79 94 06/18/19 12:10 75 96 06/18/19 12:05 97 H 97 06/18/19 12:00 75 123/66 96 06/18/19 11:57 36.9 C 16 06/18/19 11:55 75 95 06/18/19 11:50 90 95 06/18/19 11:45 71 95 06/18/19 11:40 80 96 06/18/19 11:35 76 95 06/18/19 11:30 73 123/66 97 06/18/19 11:25 74 96 06/18/19 11:20 80 96 06/18/19 11:15 78 95 06/18/19 11:10 78 96 06/18/19 11:05 76 97 06/18/19 11:00 75 132/72 97 06/18/19 10:55 76 96 06/18/19 10:50 73 95 06/18/19 10:45 70 96 06/18/19 10:40 78 96 06/18/19 10:35 75 96 06/18/19 10:30 74 124/64 95 06/18/19 10:25 81 94 06/18/19 10:20 72 97 06/18/19 10:15 75 96 06/18/19 10:10 75 97 06/18/19 10:05 70 96 06/18/19 10:00 75 16 128/72 97 06/18/19 09:55 74 96 06/18/19 09:50 76 96 06/18/19 09:45 98 H 94 06/18/19 09:36 73 95 06/18/19 09:31 72 96 06/18/19 09:29 66 133/66 06/18/19 09:26 79 94 06/18/19 09:18 68 94 06/18/19 09:13 68 95 06/18/19 09:08 72 95 06/18/19 09:03 66 95 06/18/19 08:58 67 95 06/18/19 08:56 64 148/71 H 06/18/19 08:55 71 162/77 H 06/18/19 08:53 75 96 06/18/19 08:48 70 95 06/18/19 08:43 66 95 06/18/19 08:38 67 96 06/18/19 08:33 68 95 06/18/19 08:28 77 96 06/18/19 08:23 78 96 06/18/19 08:20 75 90 06/18/19 08:18 70 92 06/18/19 08:13 75 91 06/18/19 08:08 71 92 06/18/19 08:03 73 91 06/18/19 07:58 73 91 06/18/19 07:55 72 157/75 H 06/18/19 07:53 70 92 06/18/19 07:48 74 94 06/18/19 07:46 83 89 L 06/18/19 07:43 73 94 06/18/19 07:38 70 93 06/18/19 07:33 68 93 06/18/19 07:28 68 94 06/18/19 07:23 68 93 06/18/19 07:18 68 93 06/18/19 07:13 67 94 06/18/19 07:08 66 93 06/18/19 07:05 37.1 C 77 16 137/76 06/18/19 07:03 71 93 06/18/19 06:58 67 94 06/18/19 06:55 67 155/75 H 06/18/19 06:53 70 94 06/18/19 06:48 66 93 06/18/19 06:43 68 94 06/18/19 06:38 69 95 06/18/19 06:33 66 94 06/18/19 06:28 65 95 06/18/19 06:23 61 95 06/18/19 06:18 62 97 06/18/19 06:13 62 96 06/18/19 06:08 64 96 06/18/19 06:03 64 97 06/18/19 05:58 71 95 06/18/19 05:55 66 136/76 06/18/19 05:51 64 97 06/18/19 05:46 65 96 06/18/19 05:41 67 95 06/18/19 05:36 63 96 06/18/19 05:31 61 95 06/18/19 05:26 71 96 06/18/19 05:21 65 94 06/18/19 05:16 64 96 06/18/19 05:11 63 94 06/18/19 05:06 65 96 06/18/19 05:01 64 95 06/18/19 04:56 64 97 06/18/19 04:55 61 147/72 H 06/18/19 04:51 64 96 06/18/19 04:46 60 96 06/18/19 04:43 36.9 C 18 06/18/19 04:41 65 98 06/18/19 04:36 74 97 06/18/19 04:29 63 96 06/18/19 04:24 69 96 06/18/19 04:19 64 96 06/18/19 04:14 65 96 06/18/19 04:09 64 96 06/18/19 04:04 63 96 06/18/19 03:59 62 97 06/18/19 03:55 65 161/81 H 06/18/19 03:54 67 96 06/18/19 03:49 63 95 06/18/19 03:44 63 94 06/18/19 03:39 63 94 06/18/19 03:34 65 94 06/18/19 03:29 61 94 06/18/19 03:24 65 94 06/18/19 03:19 65 94 06/18/19 03:14 64 94 06/18/19 03:09 63 95 06/18/19 03:04 62 97 06/18/19 02:59 64 96 06/18/19 02:55 60 188/85 H 06/18/19 02:54 62 97 06/18/19 02:49 65 94 06/18/19 02:44 64 96 06/18/19 02:39 62 96 06/18/19 02:34 62 97 06/18/19 02:29 63 97 06/18/19 02:20 63 94 06/18/19 02:15 66 96 06/18/19 02:10 63 94 06/18/19 02:05 65 94 06/18/19 02:00 64 94 06/18/19 01:55 61 148/70 H 95 06/18/19 01:50 65 94 06/18/19 01:45 65 95 06/18/19 01:40 63 94 06/18/19 01:35 64 94 06/18/19 01:30 63 94 06/18/19 01:25 64 94 06/18/19 01:20 63 94 BP's this morning are significantly lower than admission Will d/c home with lower dose of labetalol and f/u in office in a week Recommended home BP's and call back with any questions Discussed when to call All questions were answered Results & Data ([facility]) Vital Signs (Past 12 Hours) Vital Signs Temp Pulse Pulse Resp BP BP Pulse Ox 06/18/19 13:15 76 95 06/18/19 13:10 74 94 06/18/19 13:07 36.9 C 86 16 128/64 96 06/18/19 13:05 84 94 06/18/19 13:00 81 128/64 96 06/18/19 12:55 77 95 06/18/19 12:50 83 96 06/18/19 12:45 79 114/59 L 96 06/18/19 12:35 79 96 06/18/19 12:31 36.9 C 69 16 148/96 H 95 06/18/19 12:30 86 129/71 96 06/18/19 12:25 77 95 06/18/19 12:20 79 96 06/18/19 12:15 79 94 06/18/19 12:10 75 96 06/18/19 12:05 97 H 97 06/18/19 12:00 75 123/66 96 06/18/19 11:57 36.9 C 16 06/18/19 11:55 75 95 02/27/20 11:50 90 95 06/18/19 11:45 71 95 06/18/19 11:40 80 96 06/18/19 11:35 76 95 06/18/19 11:30 73 123/66 97 06/18/19 11:25 74 96 06/18/19 11:20 80 96 06/18/19 11:15 78 95 06/18/19 11:10 78 96 06/18/19 11:05 76 97 06/18/19 11:00 75 132/72 97 06/18/19 10:55 76 96 06/18/19 10:50 73 95 06/18/19 10:45 70 96 06/18/19 10:40 78 96 06/18/19 10:35 75 96 06/18/19 10:30 74 124/64 95 06/18/19 10:25 81 94 06/18/19 10:20 72 97 06/18/19 10:15 75 96 06/18/19 10:10 75 97 06/18/19 10:05 70 96 06/18/19 10:00 75 16 128/72 97 06/18/19 09:55 74 96 06/18/19 09:50 76 96 06/18/19 09:45 98 H 94 06/18/19 09:36 73 95 06/18/19 09:31 72 96 06/18/19 09:29 66 133/66 06/18/19 09:26 79 94 06/18/19 09:18 68 94 06/18/19 09:13 68 95 06/18/19 09:08 72 95 06/18/19 09:03 66 95 06/18/19 08:58 67 95 06/18/19 08:56 64 148/71 H 06/18/19 08:55 71 162/77 H 06/18/19 08:53 75 96 06/18/19 08:48 70 95 06/18/19 08:43 66 95 06/18/19 08:38 67 96 06/18/19 08:33 68 95 06/18/19 08:28 77 96 06/18/19 08:23 78 96 06/18/19 08:20 75 90 06/18/19 08:18 70 92 06/18/19 08:13 75 91 06/18/19 08:08 71 92 06/18/19 08:03 73 91 06/18/19 07:58 73 91 06/18/19 07:55 72 157/75 H 06/18/19 07:53 70 92 06/18/19 07:48 74 94 06/18/19 07:46 83 89 L 06/18/19 07:43 73 94 06/18/19 07:38 70 93 06/18/19 07:33 68 93 06/18/19 07:28 68 94 06/18/19 07:23 68 93 06/18/19 07:18 68 93 06/18/19 07:13 67 94 06/18/19 07:08 66 93 06/18/19 07:05 37.1 C 77 16 137/76 06/18/19 07:03 71 93 06/18/19 06:58 67 94 06/18/19 06:55 67 155/75 H 06/18/19 06:53 70 94 06/18/19 06:48 66 93 06/18/19 06:43 68 94 06/18/19 06:38 69 95 06/18/19 06:33 66 94 06/18/19 06:28 65 95 06/18/19 06:23 61 95 06/18/19 06:18 62 97 06/18/19 06:13 62 96 06/18/19 06:08 64 96 06/18/19 06:03 64 97 06/18/19 05:58 71 95 06/18/19 05:55 66 136/76 06/18/19 05:51 64 97 06/18/19 05:46 65 96 06/18/19 05:41 67 95 06/18/19 05:36 63 96 06/18/19 05:31 61 95 06/18/19 05:26 71 96 06/18/19 05:21 65 94 06/18/19 05:16 64 96 06/18/19 05:11 63 94 06/18/19 05:06 65 96 06/18/19 05:01 64 95 06/18/19 04:56 64 97 06/18/19 04:55 61 147/72 H 06/18/19 04:51 64 96 06/18/19 04:46 60 96 06/18/19 04:43 36.9 C 18 06/18/19 04:41 65 98 06/18/19 04:36 74 97 06/18/19 04:29 63 96 06/18/19 04:24 69 96 06/18/19 04:19 64 96 06/18/19 04:14 65 96 06/18/19 04:09 64 96 06/18/19 04:04 63 96 06/18/19 03:59 62 97 06/18/19 03:55 65 161/81 H 06/18/19 03:54 67 96 06/18/19 03:49 63 95 06/18/19 03:44 63 94 06/18/19 03:39 63 94 06/18/19 03:34 65 94 06/18/19 03:29 61 94 06/18/19 03:24 65 94 06/18/19 03:19 65 94 06/18/19 03:14 64 94 06/18/19 03:09 63 95 06/18/19 03:04 62 97 06/18/19 02:59 64 96 06/18/19 02:55 60 188/85 H 06/18/19 02:54 62 97 06/18/19 02:49 65 94 06/18/19 02:44 64 96 06/18/19 02:39 62 96 06/18/19 02:34 62 97 06/18/19 02:29 63 97 06/18/19 02:20 63 94 06/18/19 02:15 66 96 06/18/19 02:10 63 94 06/18/19 02:05 65 94 06/18/19 02:00 64 94 06/18/19 01:55 61 148/70 H 95 06/18/19 01:50 65 94 06/18/19 01:45 65 95 06/18/19 01:40 63 94 06/18/19 01:35 64 94 06/18/19 01:30 63 94 06/18/19 01:25 64 94 06/18/19 01:20 63 94
--- NOTE | 2019-06-23 13:00 | Discharge Summary ---
DETAILS OF ADMISSION: The patient is a 34-year-old G4, P3-0-1-3, who is status post repeat on 06/10/2019 with bilateral tubal ligation. She was discharged home on postop day #3 without any events. She presented to ER with headache, chest pain, shortness of breath on 06/17/2019. Her blood pressure was elevated. Her workup for DVT, PE were negative. She was admitted to OB floor for blood pressure control and observation. She was admitted by Dr. Graham on 06/17/2019. She was put on labetalol 200 mg b.i.d. She was kept overnight and her headache has improved. On 06/18/2019, her headache was mild. She had no more chest pain or shortness of breath. Her vital signs were stable. Her blood pressures are significantly better, some are borderline elevated, some are normal. She was kept another few hours, given Tylenol, continued with labetalol 200 b.i.d. Her blood pressures improved. They came down to 120s/70s, when there was a number of 114/59 and she wanted to go home. She was discharged on 06/18/2019 with prescriptions of labetalol at 100 mg b.i.d. and she is to be seen in the office for blood pressure recheck and instructions were given when to call, prescription was written and all questions were answered.
== END 2019-06-18 13:44 | disposition home or self-care (01) ==
LOC: 4S1 10:47 → ED 10:47 → 4S1 19:34